=== PATIENT | female | born 1945 | race Caucasian/White ===

== ENCOUNTER → 2016-10-16 | Outpatient (CLI) | payer MEDICARE, OTHER ==
[2016-10-16 09:52] LABS: ABSOLUTE EOSINOPHILS # (AUTO) 0.1 10^3/uL (0.0-0.6); ABSOLUTE LYMPHOCYTES (AUTO) 1.2 10^3/uL (0.5-4.7); ABSOLUTE MONOCYTES (AUTO) 0.8 10^3/uL (0.1-1.4); ABSOLUTE NEUT (AUTO) 5.6 10^3/uL (1.7-8.2); BASOPHILS % (AUTO) 0.4 % (0-2); EOSINOPHILS % (AUTO) 1.9 % (0-6); HEMATOCRIT 33.8 % (36.0-47.0); HEMOGLOBIN 11.5 g/dL (12.0-15.5); HGB HCT DIFFERENCE 0.7; MEAN CORPUSCULAR HEMOGLOBIN 36.1 pg (27.0-33.4); MEAN CORPUSCULAR HGB CONC 34.2 g/dL (32.0-36.0); MEAN CORPUSCULAR VOLUME 106 fl (80-97); MONOCYTES % (AUTO) 10.7 % (3-13); RED CELL DISTRIBUTION WIDTH 13.6 % (11.5-14.0); WHITE BLOOD COUNT 7.8 10^3/uL (4.0-10.5)
[2016-10-16 10:17] LABS: ALBUMIN 3.1 g/dL (3.5-5.0); ANION GAP 12 (5-19); BLOOD UREA NITROGEN 18 mg/dL (7-20); CALCIUM 8.8 mg/dL (8.4-10.2); CARBON DIOXIDE 31 mmol/L (22-30); CHLORIDE 95 mmol/L (98-107); GLUCOSE 119 mg/dL (75-110); PHOSPHORUS 3.3 mg/dL (2.5-4.5); POTASSIUM 4.1 mmol/L (3.6-5.0); SODIUM 138.3 mmol/L (137-145)
== END ==
LOC: OD 09:01
PROVIDERS: ATTEND Internal Medicine Nephrology
DX: N18.3 Chronic kidney disease, stage 3 (moderate) (principal); D63.8 Anemia in other chronic diseases classified elsewhere; E55.9 Vitamin D deficiency, unspecified; E83.39 Other disorders of phosphorus metabolism
CPT/HCPCS: 36415; 80048; 82040; 82306; 84100; 85025

== ENCOUNTER → 2017-01-22 | Outpatient (CLI) | payer MEDICARE, OTHER ==
[2017-01-22 12:20] LABS: ABSOLUTE EOSINOPHILS # (AUTO) 0.1 10^3/uL (0.0-0.6); ABSOLUTE LYMPHOCYTES (AUTO) 1.5 10^3/uL (0.5-4.7); ABSOLUTE MONOCYTES (AUTO) 0.7 10^3/uL (0.1-1.4); ABSOLUTE NEUT (AUTO) 4.5 10^3/uL (1.7-8.2); BASOPHILS % (AUTO) 0.4 % (0-2); EOSINOPHILS % (AUTO) 1.7 % (0-6); HEMATOCRIT 35.5 % (36.0-47.0); HGB HCT DIFFERENCE 0.5; LYMPHOCYTES % (AUTO) 22.1 % (13-45); MEAN CORPUSCULAR HEMOGLOBIN 36.8 pg (27.0-33.4); MEAN CORPUSCULAR HGB CONC 33.7 g/dL (32.0-36.0); MEAN CORPUSCULAR VOLUME 109 fl (80-97); RED BLOOD COUNT 3.25 10^6/uL (3.72-5.28); RED CELL DISTRIBUTION WIDTH 14.5 % (11.5-14.0); SEGMENTED NEUTROPHILS % (AUTO) 65.8 % (42-78); WHITE BLOOD COUNT 6.9 10^3/uL (4.0-10.5)
[2017-01-22 12:55] LABS: ALBUMIN 3.8 g/dL (3.5-5.0); ANION GAP 12 (5-19); BLOOD UREA NITROGEN 18 mg/dL (7-20); CALCIUM 9.4 mg/dL (8.4-10.2); CARBON DIOXIDE 30 mmol/L (22-30); CHLORIDE 101 mmol/L (98-107); CREATININE RESULT 1.06 mg/dL (0.52-1.25); GLUCOSE 130 mg/dL (75-110); POTASSIUM 4.3 mmol/L (3.6-5.0); SODIUM 142.9 mmol/L (137-145)
[2017-01-22 14:11] LABS: FOLATE 5.51 ng/mL (>2.76)
[2017-01-23 14:43] LABS: APPEARANCE,URINE CLEAR; BILIRUBIN,URINE NEGATIVE (NEGATIVE); GLUCOSE, URINE NEGATIVE (NEGATIVE); KETONES,URINE NEGATIVE (NEGATIVE); LEUKOCYTE ESTERASE,URINE NEGATIVE (NEGATIVE); NITRITE,URINE NEGATIVE (NEGATIVE); PROTEIN,URINE NEGATIVE (NEGATIVE); URINE SPECIFIC GRAVITY 1.012; UROBILINOGEN,URINE NEGATIVE mg/dL (<2.0)
[2017-01-25 11:39] LABS: CREATININE URINE 69.8 mg/dL (Not Estab.); MICROALBUMIN URINE <3.0 ug/mL (Not Estab.)
== END ==
LOC: OD 10:45
PROVIDERS: ATTEND Internal Medicine Nephrology
DX: N18.3 Chronic kidney disease, stage 3 (moderate) (principal); D63.8 Anemia in other chronic diseases classified elsewhere
CPT/HCPCS: 36415; 80048; 81001; 82040; 82043; 82306; 82570; 82607; 82728; 82746; 83540; 83550; 85025

== ENCOUNTER → 2017-05-29 | Outpatient (CLI) | payer MEDICARE, OTHER ==
[2017-05-29 13:55] LABS: ANION GAP 11 (5-19); BLOOD UREA NITROGEN 16 mg/dL (7-20); CALCIUM 9.2 mg/dL (8.4-10.2); CARBON DIOXIDE 30 mmol/L (22-30); CHLORIDE 99 mmol/L (98-107); CREATININE RESULT 1.17 mg/dL (0.52-1.25); GLUCOSE 129 mg/dL (75-110); SODIUM 140.3 mmol/L (137-145)
[2017-05-30 09:52] LABS: APPEARANCE,URINE CLEAR; BILIRUBIN,URINE NEGATIVE (NEGATIVE); GLUCOSE, URINE NEGATIVE (NEGATIVE); KETONES,URINE NEGATIVE (NEGATIVE); LEUKOCYTE ESTERASE,URINE NEGATIVE (NEGATIVE); NITRITE,URINE NEGATIVE (NEGATIVE); PROTEIN,URINE NEGATIVE (NEGATIVE); URINE SPECIFIC GRAVITY 1.009; UROBILINOGEN,URINE NEGATIVE mg/dL (<2.0)
== END ==
LOC: OD 12:19
PROVIDERS: ATTEND Internal Medicine Nephrology
DX: N18.3 Chronic kidney disease, stage 3 (moderate) (principal); R35.0 Frequency of micturition
CPT/HCPCS: 36415; 80048; 81001

== ENCOUNTER → 2017-11-29 | Outpatient (CLI) | payer MEDICARE, OTHER ==
[2017-11-29 11:17] LABS: APPEARANCE,URINE SLIGHTLY-CLOUDY; BILIRUBIN,URINE NEGATIVE (NEGATIVE); GLUCOSE, URINE NEGATIVE (NEGATIVE); KETONES,URINE NEGATIVE (NEGATIVE); LEUKOCYTE ESTERASE,URINE NEGATIVE (NEGATIVE); NITRITE,URINE NEGATIVE (NEGATIVE); PROTEIN,URINE NEGATIVE (NEGATIVE); URINE SPECIFIC GRAVITY 1.014; UROBILINOGEN,URINE NEGATIVE mg/dL (<2.0)
[2017-11-29 11:18] LABS: COLOR,URINE YELLOW
[2017-11-29 11:22] LABS: ABSOLUTE EOSINOPHILS # (AUTO) 0.1 10^3/uL (0.0-0.6); ABSOLUTE LYMPHOCYTES (AUTO) 1.5 10^3/uL (0.5-4.7); ABSOLUTE MONOCYTES (AUTO) 0.5 10^3/uL (0.1-1.4); ABSOLUTE NEUT (AUTO) 3.8 10^3/uL (1.7-8.2); BASOPHILS % (AUTO) 0.4 % (0-2); EOSINOPHILS % (AUTO) 2.1 % (0-6); HEMATOCRIT 36.3 % (36.0-47.0); HEMOGLOBIN 12.6 g/dL (12.0-15.5); LYMPHOCYTES % (AUTO) 25.1 % (13-45); MEAN CORPUSCULAR HEMOGLOBIN 36.7 pg (27.0-33.4); MEAN CORPUSCULAR HGB CONC 34.7 g/dL (32.0-36.0); MEAN CORPUSCULAR VOLUME 106 fl (80-97); MONOCYTES % (AUTO) 8.8 % (3-13); PLATELET COUNT 188 10^3/uL (150-450); RED BLOOD COUNT 3.42 10^6/uL (3.72-5.28); RED CELL DISTRIBUTION WIDTH 13.3 % (11.5-14.0); SEGMENTED NEUTROPHILS % (AUTO) 63.6 % (42-78); TOTAL CELLS COUNTED % (AUTO) 100 %
[2017-11-29 11:51] LABS: ALBUMIN 3.8 g/dL (3.5-5.0); ANION GAP 14 (5-19); BLOOD UREA NITROGEN 17 mg/dL (7-20); CALCIUM 9.7 mg/dL (8.4-10.2); CARBON DIOXIDE 30 mmol/L (22-30); CHLORIDE 103 mmol/L (98-107); GLUCOSE 154 mg/dL (75-110); PHOSPHORUS 3.7 mg/dL (2.5-4.5); POTASSIUM 4.2 mmol/L (3.6-5.0); SODIUM 146.5 mmol/L (137-145)
[2017-11-30 13:38] LABS: CREATININE URINE 94.5 mg/dL (Not Estab.); MICROALBUMIN URINE 3.3 ug/mL (Not Estab.)
== END ==
LOC: OD 10:11
PROVIDERS: ATTEND Internal Medicine Nephrology
DX: E11.22 Type 2 diabetes mellitus with diabetic chronic kidney disease (principal); I12.9 Hypertensive chronic kidney disease with stage 1 through stage 4 chronic kidney disease, or unspecified chronic kidney disease; N18.3 Chronic kidney disease, stage 3 (moderate); D63.8 Anemia in other chronic diseases classified elsewhere
CPT/HCPCS: 36415; 80048; 81001; 82040; 82043; 82306; 82570; 83970; 84100; 85025

== ENCOUNTER → 2018-05-16 | Outpatient (CLI) | payer MEDICARE, OTHER ==
[2018-05-16 12:42] LABS: ABSOLUTE EOSINOPHILS # (AUTO) 0.1 10^3/uL (0.0-0.6); ABSOLUTE LYMPHOCYTES (AUTO) 1.6 10^3/uL (0.5-4.7); ABSOLUTE MONOCYTES (AUTO) 0.6 10^3/uL (0.1-1.4); BASOPHILS % (AUTO) 0.6 % (0-2); EOSINOPHILS % (AUTO) 1.8 % (0-6); HEMATOCRIT 35.4 % (36.0-47.0); HEMOGLOBIN 12.2 g/dL (12.0-15.5); LYMPHOCYTES % (AUTO) 24.7 % (13-45); MEAN CORPUSCULAR HGB CONC 34.4 g/dL (32.0-36.0); MEAN CORPUSCULAR VOLUME 105 fl (80-97); MONOCYTES % (AUTO) 10.2 % (3-13); PLATELET COUNT 179 10^3/uL (150-450); RED BLOOD COUNT 3.38 10^6/uL (3.72-5.28); RED CELL DISTRIBUTION WIDTH 12.8 % (11.5-14.0); SEGMENTED NEUTROPHILS % (AUTO) 62.7 % (42-78); TOTAL CELLS COUNTED % (AUTO) 100 %; WHITE BLOOD COUNT 6.3 10^3/uL (4.0-10.5)
[2018-05-16 12:59] LABS: ALANINE AMINOTRANSFERASE 32 U/L (9-52); ALBUMIN 3.9 g/dL (3.5-5.0); ALKALINE PHOSPHATASE 143 U/L (38-126); ANION GAP 12 (5-19); ASPARTATE AMINO TRANSFERASE 51 U/L (14-36); BILIRUBIN,DIRECT 0.2 mg/dL (0.0-0.4); BILIRUBIN,TOTAL 0.6 mg/dL (0.2-1.3); BLOOD UREA NITROGEN 19 mg/dL (7-20); C-REACTIVE PROTEIN 23.5 mg/L (<10.0); CALCIUM 9.7 mg/dL (8.4-10.2); CARBON DIOXIDE 29 mmol/L (22-30); CHLORIDE 100 mmol/L (98-107); GLUCOSE 268 mg/dL (75-110); POTASSIUM 4.1 mmol/L (3.6-5.0); SODIUM 141.2 mmol/L (137-145); TOTAL PROTEIN 8.2 g/dL (6.3-8.2)
[2018-05-16 13:19] LABS: ERYTHROCYTE SEDIMENTATION RATE 108 mm/hr (0-30)
--- NOTE | 2018-05-16 14:06 | RADIOLOGY REPORT (SQ) ---
EXAM DESCRIPTION: FOOT LEFT COMPLETE COMPLETED DATE/TIME: 05/16/2018 1:24 pm REASON FOR STUDY: NON-PRS CHRONIC ULCER OTH PRT LEFT FOOT W FAT LAYER EXPOSED (L97.522) L97.522 NON -PRS CHRONIC ULCER OTH PRT LEFT FOOT W FAT LAYER COMPARISON: None. NUMBER OF VIEWS: Three views. TECHNIQUE: AP, lateral and oblique without weight bearing radiographic images acquired of the left f oot. LIMITATIONS: None. FINDINGS: MINERALIZATION: Mild demineralization. BONES: No acute fracture or dislocation. No worrisome bone lesions. Plantar calcaneal spur. JOINTS: No erosions. No aleida-articular osteopenia. No chondrocalcinosis. SOFT TISSUES: No swelling. No calcifications. OTHER: No other significant finding. IMPRESSION: MILD DEMINERALIZATION. HEEL SPUR. NO OTHER SIGNIFICANT FINDINGS. TECHNICAL DOCUMENTATION: JOB ID: [id number] [employer]- All Rights Reserved Reading location - IP/workstation name: [email or web address]
--- NOTE | 2018-05-20 09:31 | XCELERA REPORT ---
[address] [address] Lower Extremity Venous Evaluation Procedure: A bilateral duplex scan of the lower extremity veins was performed. The evaluation included responses to compression and other maneuvers with patient in the supine and standing positions to assess venous insufficiency. Right Sided Venous Evaluation Deep venous system evaluatiion shows patent veins with no obstruction or significant reflux identified. Sapheno Femoral junction: no reflux. Femoral vein reflux: no reflux. Greater Saphenous vein, Proximal thigh: reflux: no reflux. Greater Saphenous vein, Distal thigh: reflux: no reflux. Greater Saphenous vein, Proximal below knee: reflux: no reflux. No significant Perforators identified. Left Sided Venous Evaluation Deep venous system evaluatiion shows patent veins with no obstruction or significant reflux identified. Sapheno Femoral junction: no reflux. Femoral vein reflux: no reflux. Greater Saphenous vein, Proximal thigh: reflux: no reflux. Greater Saphenous vein, Distal thigh: reflux: no reflux. Greater Saphenous vein, Proximal below knee: reflux: no reflux. No significant Perforators identified. Interpretation Summary No duplex evidence of DVT or obstruction in the bilateral lower extremities. No significant deep or superficial venous reflux noted. Name: ROQUE LLANOS Age: 72 yrs Gender: Female : 1945 Patient Status: Outpatient Patient Location: Study Date: 05/16/2018 02:58 PM Reason For Study: ULCER Ordering Physician: CHRISSY VILLA Performed By: Sammy Hernandez : CHRISSY VILLA > Ti Hernandez
--- NOTE | 2018-05-20 10:36 | XCELERA REPORT ---
[address] [address] Lower Extremity Arterial Evaluation Name: ROQUE LLANOS Age: 72 yrs Gender: Female : 1945 Patient Status: Outpatient Patient Location: Study Date: 05/16/2018 02:30 PM Procedure: A color flow and duplex scan of the lower extremity arteries was performed bilaterally with velocity and waveform anaylsis. Reason For Study: ULCER Ordering Physician: CHRISSY VILLA Performed By: Sammy Hernandez Measurements and Calculations Right Left POST ANESTHESIA NURSE PSV 125.0 140.6 cm/sec Prox PFA PSV -90.4 -81.2 cm/sec Prox Pop A PSV 48.6 57.5 cm/sec Mid CARLIN PSV 73.3 cm/sec Dist CARLIN PSV -5.3 68.0 cm/sec Dist PRINTER HELPER PSV 68.8 72.5 cm/sec Asael Pedis PSV 25.5 54.4 cm/sec Right Side Arterial Evaluation Normal velocity and triphasic waveforms noted from the Common Femoral artery to the Posterior Tibial artery . Retrograde, biphasic, severely diminished velocity in the Anterior Tibial artery Possible obstruction, reconstitution at the Anterior Tibial artery. Ankle Brachial index was not done, patient unable to tolerate. Left Side Arterial Evaluation Normal velocity and triphasic waveforms noted from the Common Femoral artery to the infrageniculate vessels. 0 % stenosis noted. Ankle Brachial index was not done due to the presence of a wound. Interpretation Summary Possible obstruction with collateral filling of the right Anterior Tibial artery. Mild hemodynamically significant lesions in the right lower extremity only, on duplex imaging, at rest. No hemodynamically significant lesions in the left lower extremity only, on duplex imaging, at rest. : CHRISSY VILLA > Ti Hernandez
== END ==
LOC: SP 12:35
PROVIDERS: ATTEND Nurse Practitioner
DX: L97.522 Non-pressure chronic ulcer of other part of left foot with fat layer exposed (principal)
CPT/HCPCS: 36415; 80053; 85025; 85652; 86140; 93925; 93970

== ENCOUNTER → 2018-06-14 | Outpatient (CLI) | payer MEDICARE, OTHER ==
--- NOTE | 2018-06-14 11:30 | RADIOLOGY REPORT (SQ) ---
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 TECHNIQUE: AP, lateral and oblique radiographic images acquired of the left foot. LIMITATIONS: None. FINDINGS: MINERALIZATION: Normal. BONES: No acute fracture or dislocation. No worrisome bone lesions. JOINTS: Intact. SOFT TISSUES: Skin ulcer head of 1st metatarsal. No foreign body. OTHER: Old distal fibular fracture. IMPRESSION: No evidence of osteomyelitis. TECHNICAL DOCUMENTATION: JOB ID: [id number] [employer]- All Rights Reserved Reading location - IP/workstation name: [email or web address]
[2018-06-14 11:31] LABS: ANION GAP 9 (5-19); BLOOD UREA NITROGEN 20 mg/dL (7-20); CALCIUM 9.5 mg/dL (8.4-10.2); CARBON DIOXIDE 29 mmol/L (22-30); CHLORIDE 103 mmol/L (98-107); GLUCOSE 173 mg/dL (75-110); POTASSIUM 4.5 mmol/L (3.6-5.0); SODIUM 140.7 mmol/L (137-145)
== END ==
LOC: WC 09:41
PROVIDERS: ATTEND Nurse Practitioner
DX: E11.621 Type 2 diabetes mellitus with foot ulcer (principal); L97.522 Non-pressure chronic ulcer of other part of left foot with fat layer exposed; N18.3 Chronic kidney disease, stage 3 (moderate)
CPT/HCPCS: 36415; 80048

== ENCOUNTER → 2018-06-21 | Outpatient (CLI) | payer MEDICARE, OTHER ==
[2018-06-21 12:43] LABS: APPEARANCE,URINE SLIGHTLY-CLOUDY; BILIRUBIN,URINE NEGATIVE (NEGATIVE); COLOR,URINE YELLOW; GLUCOSE, URINE NEGATIVE (NEGATIVE); KETONES,URINE NEGATIVE (NEGATIVE); LEUKOCYTE ESTERASE,URINE SMALL (NEGATIVE); NITRITE,URINE NEGATIVE (NEGATIVE); PROTEIN,URINE NEGATIVE (NEGATIVE); URINE SPECIFIC GRAVITY 1.014; UROBILINOGEN,URINE NEGATIVE mg/dL (<2.0)
== END ==
LOC: OD 11:57
PROVIDERS: ATTEND Internal Medicine Nephrology
DX: N18.3 Chronic kidney disease, stage 3 (moderate) (principal); N39.0 Urinary tract infection, site not specified
CPT/HCPCS: 81001; 87086; 87088; 87186

== ENCOUNTER → 2019-06-27 | Outpatient (CLI) | payer MEDICARE, OTHER ==
[2019-06-27 13:58] LABS: ANION GAP 13 (5-19); BLOOD UREA NITROGEN 18 mg/dL (7-20); CALCIUM 9.8 mg/dL (8.4-10.2); CARBON DIOXIDE 33 mmol/L (22-30); CHLORIDE 94 mmol/L (98-107); GLUCOSE 260 mg/dL (75-110); POTASSIUM 4.5 mmol/L (3.6-5.0)
[2019-06-27 17:20] LABS: APPEARANCE,URINE CLEAR; BILIRUBIN,URINE NEGATIVE (NEGATIVE); COLOR,URINE YELLOW; GLUCOSE, URINE 50 mg/dL (NEGATIVE); KETONES,URINE NEGATIVE (NEGATIVE); LEUKOCYTE ESTERASE,URINE NEGATIVE (NEGATIVE); NITRITE,URINE NEGATIVE (NEGATIVE); PROTEIN,URINE NEGATIVE (NEGATIVE); URINE SPECIFIC GRAVITY 1.015; UROBILINOGEN,URINE NEGATIVE mg/dL (<2.0)
== END ==
LOC: OD 12:34
PROVIDERS: ATTEND Internal Medicine Nephrology
DX: I12.9 Hypertensive chronic kidney disease with stage 1 through stage 4 chronic kidney disease, or unspecified chronic kidney disease (principal); N18.3 Chronic kidney disease, stage 3 (moderate); E11.22 Type 2 diabetes mellitus with diabetic chronic kidney disease
CPT/HCPCS: 36415; 80048; 81001

== ENCOUNTER → 2019-10-14 | Outpatient (CLI) | payer MEDICARE, OTHER ==
--- NOTE | 2019-10-14 11:34 | RADIOLOGY REPORT (SQ) ---
EXAM DESCRIPTION: ANKLE RIGHT COMPLETE IMAGES COMPLETED DATE/TIME: 10/14/2019 11:25 am REASON FOR STUDY: L97.312 NON-PRS CHRONIC ULCER OF RIGHT ANKLE W FAT LAYER EXPOSED, E11.622 T L97.31 2 NON-PRS CHRONIC ULCER OF RIGHT ANKLE W FAT LAYER EXP COMPARISON: None. NUMBER OF VIEWS: Three views. TECHNIQUE: AP, lateral, and oblique radiographic images acquired of the right ankle. LIMITATIONS: Study is limited by overlying soft tissue dressing. FINDINGS: MINERALIZATION: Normal. BONES: No acute fracture or dislocation. No worrisome bone lesions. No conventional radiographic ev idence of osteomyelitis. JOINTS: No effusions. SOFT TISSUES: No soft tissue swelling. No foreign body. OTHER: No other significant finding. IMPRESSION: No conventional radiographic evidence of osteomyelitis. TECHNICAL DOCUMENTATION: JOB ID: [id number] 2010 [employer]- All Rights Reserved Reading location - IP/workstation name: [email or web address]
--- NOTE | 2019-10-15 09:45 | RADIOLOGY REPORT (SQ) ---
EXAM DESCRIPTION: ARTERIAL LOWER EXTREM BILAT IMAGES COMPLETED DATE/TIME: 10/14/2019 4:30 pm REASON FOR STUDY: RT ANKLE ULCER L97.312 NON-PRS CHRONIC ULCER OF RIGHT ANKLE W FAT LAYER EXP COMPARISON: 05/16/2018 TECHNIQUE: Dynamic and static chicas scale and color images acquired of the lower extremity arteries. Additional selected spectral images recorded. ABIs recorded. LIMITATIONS: None. FINDINGS: RIGHT LEG: ABIS: Normal, over 1.0. INFLOW ARTERIES: Normal, no obstruction evident. FEMORAL ARTERIES:Multiphasic waveforms. Elevated velocity 1.3 m/sec in the common femoral and proxima l femoral arteries. POPLITEAL ARTERY:Multiphasic waveforms. No significant stenosis. PATENT TIBIOPERONEAL TRUNK AND 3 VESSEL RUNOFF: Yes. Retrograde flow in the dorsalis pedis. TBI: Not performed. OTHER: No other significant finding. LEFT LEG: ABIS: Normal, over 1.0. INFLOW ARTERIES: Normal, no obstruction evident. FEMORAL ARTERIES:Multiphasic waveforms. Elevated velocity 1.7 m/sec common femoral artery. 1.3 m/sec femoral artery. POPLITEAL ARTERY:Multiphasic waveforms. No significant stenosis. PATENT TIBIOPERONEAL TRUNK AND 3 VESSEL RUNOFF: Yes. Retrograde flow in the dorsalis pedis. TBI: Not performed. OTHER: No other significant finding. IMPRESSION: Mildly elevated velocities in the femoral arteries bilaterally. Retrograde flow in the dorsalis pedis bilaterally. COMMENT: [facility] NORMAL: Greater than 1.0 MINIMAL DISEASE: 0.9 to 1.0 CLAUDICATION: 0.5 to 0.9 SEVERE ARTERIAL DISEASE: Less than 0.5 [facility] NORMAL: Greater than 1.0 (1.2 If Heavy Calcifications) NORMAL TO MILD ISCHEMIA: 0.8 to 1.0 MODERATE ISCHEMIA: 0.4 to 0.8 SEVERE ISCHEMIA: Less than 0.4 TECHNICAL DOCUMENTATION: JOB ID: [id number] 2010 [employer]- All Rights Reserved Reading location - IP/workstation name: [email or web address]
== END ==
LOC: SP 10:49
PROVIDERS: ATTEND Nurse Practitioner Family
DX: E11.622 Type 2 diabetes mellitus with other skin ulcer (principal); L97.312 Non-pressure chronic ulcer of right ankle with fat layer exposed
CPT/HCPCS: 93922; 93925